=== PATIENT | female | born 1985 | race Hispanic/Latino ===

== ENCOUNTER 2019-01-14 16:40 | Emergency (ER) | payer SELFPAY ==
--- NOTE | 2019-01-14 17:20 | Emergency Department Report ---
Eye Injury/Foreign Body - HPI Other History: PT states two days ago felt like she had a stye in the right eye. states that yesterday began having bilateral eye pain, bilateral eye drainage, bilateral crusting, no vision changes, pt states she wears glasses no contacts, no sick contacts, PMHx arthritis, diverticulitis, allergy to bactrim: hives. no contact use ED Review of Systems ROS: Stated complaint: EYE PAIN Other details as noted in HPI Comment: All other systems reviewed and negative ED Past Medical Hx - Past Medical History Previous Medical History?: Yes Hx Arthritis: Yes Additional medical history: DIVERTICULITIS - Surgical History Past Surgical History?: No - Medications Home Medications: Home Medications Medication Instructions Recorded Confirmed Last Taken Type Erythromycin [Erythromycin Ophth 0.5 inch OP QID 7 Days #1 tube 01/14/19 Unknown Rx Oint] Eye Injury Exam - Exam General: Vital signs noted. No distress. Alert and acting appropriately. bilateral conjunctival injection, no periorbital edema, EOMI, PERRL, no obvious drainage alert and oriented x3 atraumatic, normocephalic mucous membranes moist normal affect and mood skin is warm, dry, intact ED Medical Decision Making - Medical Decision Making PT states two days ago felt like she had a stye in the right eye. states that yesterday began having bilateral eye pain, bilateral eye drainage, bilateral crusting, no vision changes, pt states she wears glasses no contacts, no sick contacts, PMHx arthritis, diverticulitis, allergy to bactrim: hives no contact use. on exam appears to have bilateral conjunctivitis, no signs of hordeolum, pt given erythromycin ointment. discussed to please use medication as prescribed. follow up with a primary care doctor in the next 2-3 days. return to the emergency room for any new or worsening symptoms. Critical care attestation.: If time is entered above; I have spent that time in minutes in the direct care of this critically ill patient, excluding procedure time. ED Disposition Clinical Impression: Conjunctivitis Qualifiers: Conjunctivitis type: acute Acute conjunctivitis type: unspecified Laterality: bilateral Qualified Code(s): H10.33 - Unspecified acute conjunctivitis, bilateral Disposition: TO HOME OR SELFCARE Is pt being admited?: No Does the pt Need Aspirin: No Condition: Stable Instructions: Conjunctivitis (ED) Additional Instructions: please use medication as prescribed. follow up with a primary care doctor in the next 2-3 days. return to the emergency room for any new or worsening symptoms. Prescriptions: Erythromycin [Erythromycin Ophth Oint] 0.5 inch OP QID 7 Days #1 tube Referrals: [facility] [Provider Group] - 2-3 Days [facility] [Outside] - 2-3 Days Forms: Work/School Release Form(ED) Time of Disposition: 17:20 Print Language: AZERI
[2019-01-14 17:28] VITALS: BP 120/89
== END 2019-01-14 17:48 | disposition home or self-care (01) ==
LOC: ED 16:40
DX: H10.33 Unspecified acute conjunctivitis, bilateral (principal); M19.90 Unspecified osteoarthritis, unspecified site; Z88.2 Allergy status to sulfonamides
CPT/HCPCS: 99282

== ENCOUNTER 2021-12-24 17:45 | Emergency (ER) | payer SELFPAY ==
[2021-12-24 18:41] VITALS: BP 135/74
[2021-12-25 03:14] LABS: HCG Qualitative,Urine Negative (Negative)
[2021-12-25 03:16] LABS: Bacteria,Urine 3+ /HPF (Negative); Bilirubin,Urine NEG (Negative); Blood,Urine LG (Negative); Color,Urine Yellow (Yellow); Mucus,Urine FEW /HPF; Urobilinogen,Urine < 2.0 mg/dL (<2.0)
== END 2021-12-25 07:52 | disposition left against medical advice (07) ==
LOC: ED 17:45
DX: R10.9 Unspecified abdominal pain (principal); Z53.21 Procedure and treatment not carried out due to patient leaving prior to being seen by health care provider
CPT/HCPCS: 81001; 81025